=== PATIENT | female | born 1940 | race Caucasian/White ===

== ENCOUNTER 2025-04-16 09:59 | Outpatient (CLI) | payer MEDICARE | END 2025-04-16 10:00 | disposition home or self-care (01) | LOC: SCSRAD 09:59 | PROVIDERS: ATTEND Family Medicine | DX: S29.9XXA Unspecified injury of thorax, initial encounter (principal) ==

== ENCOUNTER 2025-06-26 10:38 | Emergency (ER) | payer MEDICARE ==
[2025-06-26 11:32] LABS: Bacteria/HPF None Seen HPF (None Seen); CAUTI Indications for Culture Dysuria,urgency,freq; Glucose, Urine (Dipstick) Normal (Negative); Leukocyte 75 Leu/uL (Negative); Protein, Urine (Dipstick) Negative (Neg-Trace); RBC/HPF 0-3 HPF (0-3); Specific Gravity, Urine 1.022 (1.002-1.036)
[2025-06-26 11:40] LABS: Urine Culture Reflex Yes Yes
== END 2025-06-26 13:10 | disposition home or self-care (01) ==
LOC: ERS 10:38
DX: N39.0 Urinary tract infection, site not specified (principal); E11.9 Type 2 diabetes mellitus without complications; I48.91 Unspecified atrial fibrillation; Z79.01 Long term (current) use of anticoagulants; Z79.84 Long term (current) use of oral hypoglycemic drugs; Z79.899 Other long term (current) drug therapy; Z79.4 Long term (current) use of insulin
CPT/HCPCS: 81001; 87077; 87086; 87186